=== PATIENT | male | born 1990 | race Hispanic/Latino ===

== ENCOUNTER 2017-05-22 19:13 | Inpatient (IN) | payer OTHER ==
[~2017-05-22] VITALS: Ht 180.3 cm; Wt 73.1 kg
[2017-05-22 19:24] VITALS: BP 149/76; PULSE 66; RESP 20; O2SAT 98
[2017-05-22 20:51] LABS: BASOPHILS % (AUTO) 0.1 % (0-3); EOSINOPHILS % (AUTO) 0.4 % (0-5); MONOCYTES % (AUTO) 6.3 % (4-12); Mean Corpuscular Volume 83.7 fL (81-100); NEUTROPHILS % (AUTO) 83.6 % (40-74); Platelet Count 231 bil/L (150-400)
--- NOTE | 2017-05-22 21:18 | ED.REPORT ---
HPI-Abd Pain M Under 40 Date of Service May 22, 2017 ED Provider: Betito Bright DO A 26 year old male with no pertinent medical history presents to the ED complaining of abdominal pain. This pain began last night and has been gradually worsening since and has been accompanied by nausea. The pain worsened significantly when the pt attempted to orange picker a two year old child today. Nursing Notes Stated Complaint: ABDOMINAL PAIN Chief Complaint: Male Abdominal Pain Nursing Notes Reviewed: Yes Allergies: Coded Allergies: No Known Allergies (Unverified , 05/22/17) No Active Prescriptions or Reported Meds General Time Seen by MD: 21:18 Chief Complaint Abdominal pain Hx Obtained From: Patient Arrived By: Walk-in Sudden in Onset?: No Onset Occurred: 1 day ago Symptom Duration: Since onset Recent Healthcare: No recent doctor visit, No recent hospitalization Similar Sx Previous: No Past Medical History Past Medical History none reported Past Surgical History none reported Smoking History Unknown if Ever Smoker Social History Alcohol Use: "Social" Other Social History: Good social support Ambulatory Status Independent Review of Systems Respiratory: Denies: Non-productive cough, Shortness of breath Cardiovascular: Denies: Chest pain GI: Reports: Abdominal pain, Nausea Musculoskeletal: Denies: Back pain, Neck pain Complete sys rev & neg: except as marked. Physical Exam Initial Vital Signs Vital Signs (First) Date Time Temp Pulse Resp B/P Pulse Ox O2 Delivery O2 Flow Rate FiO2 05/22/17 19:24 36.8 66 20 149/76 98 Room Air Initial VS: Reviewed General/Constitutional: Awake, Alert Respiratory / Chest: Atraumatic, Breath sounds NL, Breath sounds = bilat, No respiratory distress Cardiovascular: Heart rate NL, Regular rhythm, Heart sounds NL Abdomen: Atraumatic, Soft moderate RLQ tenderness Back: Atraumatic, Full range of motion Head / Eyes: Atraumatic, Normocephalic, PERRL, EOMI ENT: Atraumatic, Airway patent, Mucous membranes moist Neurologic: Oriented X3, Speech NL, No motor deficits, No sensory deficits Neck: Atraumatic, Supple, Full range of motion Upper Extremity / MS: Atraumatic, Full range of motion Lower Extremity / Pelvis / MS: Atraumatic, Full range of motion Skin: Atraumatic, Color NL, No rash, Warm, Dry Psychiatric: Affect NL, Mood NL Interpretation & Diagnostics Lab Results Interpretation Result Diagram: 05/22/17202505/22/172025 Test 05/22/17 20:26 05/22/17 21:15 05/22/17 23:20 White Blood Count 17.0th/mm3 (3.8-10.1) Red Blood Count 4.97mil/mm3 (4.40-5.80) Hemoglobin 14.4g/dL (13.8-17.2) Hematocrit 41.6% (41.0-50.0) Mean Corpuscular Volume 83.7fL (81-100) Mean Corpuscular Hemoglobin 29.0pg (27.0-35.0) Mean Corpuscular Hemoglobin Concent 34.6% (32.0-37.0) Red Cell Distribution Width 13.3% (12.3-15.4) Platelet Count 231bil/L (150-400) Neutrophils (%) (Auto) 83.6% (40-74) Lymphocytes (%) (Auto) 9.4% (14-46) Monocytes (%) (Auto) 6.3% (4-12) Eosinophils (%) (Auto) 0.4% (0-5) Basophils (%) (Auto) 0.1% (0-3) Sodium Level 138mEq/L (134-144) Potassium Level 4.0mEq/L (3.5-5.2) Chloride Level 98mEq/L (97-108) Carbon Dioxide Level 23mmol/L (18-29) Blood Urea Nitrogen 9mg/dL (6-20) Creatinine 0.71mg/dL (0.76-1.27) Estimat Glomerular Filtration Rate 141mL/min (>59) Glucose Level 138mg/dL (60-99) Calcium Level 9.5mg/dL (8.5-10.1) Magnesium Level 1.7mg/dL (1.6-2.6) Total Bilirubin 1.1mg/dL (0.0-1.2) Aspartate Amino Transf (AST/SGOT) 25U/L (0-50) Alanine Aminotransferase (ALT/SGPT) 29U/L (0-44) Alkaline Phosphatase 79U/L (25-150) Total Protein 7.8g/dL (6.4-8.4) Albumin 4.1g/dL (3.4-5.0) Lipase 15U/L (13-60) Hold Turcios Top Tube Received (Received) Urine Color Yellow (YELLOW) Urine Appearance Clear (CLEAR,HAZY) Urine pH 5.5 (5.0-8.0) Urine Specific [place] 1.020 (1.003-1.035) Urine Protein Negativemg/dL (NEG,TRACE) Urine Glucose (UA) Negativemg/dL (NEGATIVE) Urine Ketones >80mg/dL (NEGATIVE) Urine Occult Blood Negative (NEGATIVE) Urine Nitrite Negative (NEGATIVE) Urine Bilirubin Negative (NEGATIVE) Urine Urobilinogen Normalmg/dL (NORMAL) Urine Leukocyte Esterase Negative (NEGATIVE) Urine RBC 0-2/hpf (0-2) Urine WBC 0-5/hpf (0-5) Urine Epithelial Cells Occasional/hpf (NONE-MOD) Urine Crystals None seen (NONE SEEN) Urine Bacteria Few/hpf (NONE-FEW) Urine Hyaline Casts None/lpf (NONE) Urine Granular Casts None seen (NONE SEEN) Urine Waxy Casts None seen (NONE SEEN) Urine Red Blood Cell Casts None seen (NONE SEEN) Urine White Blood Cell Casts None seen (NONE SEEN) Urine Mucus Present (None Seen) Urine Trichomonas None seen (NONE SEEN) Urine Yeast None (NONE SEEN) Urinalysis Comment None Urine Culture Reflexed Not indicated Pulse Oximetry Interpretation Pulse Oximetry Interpretation: 98% on room air Pulse Oximetry: Pulse Ox normal CT Abd / Pelvis Interpretation CONCLUSION: CT findings of acute appendicitis. Poorly defined appendiceal wall at the tip, where an appendicolith is noted, worrisome for perforation, though no extraluminal air or discrete abscess is seen. Moderate fluid in the dependent portion of the pelvis, more dense than typical ascites, and worrisome for pus. Interpretation / Wet Read by: Interpret - Radiologist Re-Eval/Medical Decision Source of Hx: Old records Re-Evaluation/Progress : Time of Eval: 23:20 Patient Status: Condition improved Re-Evaluation/Progress Note: Pt rechecked, whose pain has improved. The diagnosis and plan for admission are discussed. The pt understands and agrees with the plan. All questions are addressed at this time. Consultation : Referral / Consult Name: Ricki Hugo MD Call Returned at: 23:24 Atomizer Assembler: Agrees with eval, Agrees with plan, Accepts admit Note: Spoke with Dr. Hugo, surgeon, regarding pt's case. Dr. Hugo agrees with the evaluation and agrees to admit the pt. Counseled Regarding: Diagnosis, Lab results, Need for admission Patient Discharge & Departure Primary Impression: Acute appendicitis Acute appendicitis type: unspecified acute appendicitis type Qualified Code: K35.80 - Unspecified acute appendicitis Disposition: ADMITTED TO HOSPITAL Discharge Condition All VS Reviewed: Yes Condition: Stable Additional Instructions: Portions of this note were transcribed by Lyndsay Collier. Dr. Kaila Mixon personally performed the history, physical exam and medical decision-making; I reviewed and confirmed the accuracy of the information in the transcribed note. Signed by: Cheyenne Matthew, 05/22/2017 and 0486. Referrals: [facility] [place] Attestation Portions of this note were transcribed by Lyndsay Collier. Dr. Kaila Mixon personally performed the history, physical exam and medical decision-making; I reviewed and confirmed the accuracy of the information in the transcribed note. Signed by: Cheyenne Matthew, 05/22/2017 and [id number]. copies to: [facility] Betito Bright DO May 22, 2017 21:18 LYNDSAY COLLIER May 22, 2017 22:13
[2017-05-22] MEDS ORDERED: HYDROmorphone 0.5 mg/0.5 mL iSecure Syringe IVPUSH ONE (21:20)
[2017-05-22 21:22] LABS: Magnesium 1.7 mg/dL (1.6-2.6)
[2017-05-22] MEDS ORDERED: Iohexol 300 mg/mL 30 mL Inj PO ONE (21:40)
[2017-05-22 21:44] VITALS: BP 148/75; PULSE 87; RESP 20; O2SAT 96
[2017-05-22] MEDS ORDERED: Piperacillin-Tazo 3.375 Gm Inj 3.375 GM in Dextrose 5% Minibag Plus 50 ML IV ONE (23:20)
[2017-05-22 23:43] LABS: APPEARANCE,URINE CLEAR (CLEAR,HAZY); COLOR,URINE YELLOW (YELLOW); OCCULT BLOOD,URINE NEGATIVE (NEGATIVE); PH,URINE 5.5 (5.0-8.0); UROBILINOGEN,URINE NORMAL (NORMAL)
[2017-05-22 23:49] VITALS: BP 132/71; PULSE 90; RESP 16; O2SAT 99
[2017-05-23] VITALS (12 sets, daily range): BP systolic 112–128; BP diastolic 51–75; PULSE 71–103; RESP 16–20; O2SAT 96–99
[2017-05-23] MEDS ORDERED: Phenylephrine 10,000 mCg/mL Inj IVPUSH PRN
[2017-05-23] MEDS ORDERED: fentaNYL-PF 50 mCg/mL 2 mL Inj IVPUSH PRN
[2017-05-23] MEDS ORDERED: MetoCLOpramide 5 mg/mL 2 mL Inj IVPUSH PRN
[2017-05-23] MEDS ORDERED: HYDROmorphone 1 mg/mL Inj IVPUSH PRN
[2017-05-23] MEDS ORDERED: EPHEDrine Sulfate 50 mg/mL Inj IVPUSH PRN
[2017-05-23] MEDS ORDERED: Dexamethasone 4 mg/mL Inj IVPUSH PRN
[2017-05-23] MEDS ORDERED: Lactated Ringer's 1,000 ML IV SCH
[2017-05-23] MEDS ORDERED: Labetalol 5 mg/mL 4 mL Inj IV PRN
[2017-05-23] MEDS ORDERED: Lactated Ringer's 500 ML IV PRN
[2017-05-23] MEDS ORDERED: hydrALAZINE 20 mg/mL Inj IVPUSH PRN
--- NOTE | 2017-05-23 00:17 | HP PRE OP ---
[address] [address] PREOPERATIVE HISTORY AND PHYSICAL PATIENT: PAUL GUADALUPE : 1990 MR#: [id number] ADMIT: 05/23/2017 JOB ID: [id number] CHIEF COMPLAINT AND IDENTIFICATION: A 26-year-old man with probable appendicitis. HISTORY OF PRESENT ILLNESS: He reports onset of abdominal pain last night with gradually increased pain and associated nausea. CT scan has been obtained consistent with appendicitis. The patient has no previous history of chronic GI complaints or previous abdominal surgery. PAST MEDICAL HISTORY: Unremarkable. MEDICATIONS: None. ALLERGIES: None. SOCIAL HISTORY: , seen with his , negative daily alcohol, negative tobacco. 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 He does have sick leave. FAMILY HISTORY: Noncontributory. REVIEW OF SYSTEMS: Negative. PHYSICAL EXAMINATION: Slender man in no acute distress. BMI is 21.7. Vital signs are within normal limits other than a mildly elevated temperature of 38.2. Room air saturation is 96%. His neck is supple. HEENT: Sclerae clear. His neck is supple. Lungs are clear. Heart sounds are regular. He has significant right lower quadrant tenderness to palpation and percussion. LABORATORIES: Show a white count of 17, hematocrit is 41.6. Chemistries are within normal limits. His glucose is 138, lipase is 15. IMAGING: He has had a CT scan. I have reviewed the political science faculty member report, as well as reviewed the images, and I concur that this is consistent with appendicitis. He appears to have an appendicolith. IMPRESSION AND PLAN: I have recommended a laparoscopic appendectomy. He agrees to proceed. The operating room crew will move things ahead.
[2017-05-23] MEDS ORDERED: Ondansetron 2 mg/mL 2 mL Inj ONE (00:23)
[2017-05-23] MEDS ORDERED: Ketamine 10 mg/mL 20 mL Inj ONE (00:23)
[2017-05-23] MEDS ORDERED: Lactated Ringer's 1,000 ML IV ONE (00:23)
[2017-05-23] MEDS ORDERED: fentaNYL-PF 50 mCg/mL 2 mL Inj ONE (00:23)
[2017-05-23] MEDS ORDERED: Propofol 10,000 mCg/mL 20 mL Inj ONE (00:23)
[2017-05-23] MEDS ORDERED: Succinylcholine Chloride 20 mg/mL 5 mL Inj ONE (00:23)
[2017-05-23] MEDS ORDERED: Dexamethasone 4 mg/mL Inj ONE (00:23)
--- NOTE | 2017-05-23 00:23 | PCM.HPANE ---
Patient Data Date of Service: May 23, 2017 Surgeon Admitting Provider: Attending Provider:Ricki Hugo MD Primary Care Physician:Alycia Other Provider:Kizzy Talamantes Anesthesia Reason for Visit Abdominal Pain Ht/WT & BMI Height (Feet): 5 Height (Inches): 11 Weight (Kilograms): 70.45 Body Mass Index Allergies Coded Allergies: No Known Allergies (Unverified , 05/22/17) Past Anesthesia History Anesthesia History: Denies:: Abnormal Airway, Anesthesia Reactions, Difficult Intubation, Fam Anesthesia Reaction, Fam Malignant Hypertherm, Malignant Hyperthermia Diabetes History Hx Diabetes?: No Medications No Active Prescriptions or Reported Meds History History of ENT Problems?: No HEENT History: Denies:: Abnormal Airway Cataracts Difficult Intubation Dysphagia Glaucoma Hearing Problem Sinus Problem TMJ Denture Type: None Teeth Condition: Within Normal Limits Hx of Heart Problems?: No Cardiovascular History: Denies:: Congestive Heart Failure Hypertension Hx of Respiratory Problem?: No Respiratory History: Positive for:: Oxygen Administration Denies:: Asthma COPD Cough Dyspnea Pneumonia Use of C-PAP Machine Use of Inhalers / NEBS Hx Neurologic Problems?: No Hx of GI Problems?: No Hx of Problems?: No Hx Musculoskeletal Problems?: No Hx Surgeries?: No Hx Diabetes: No Hx Alcohol Use: Yes (sometimes)Hx Substance Use: No Smoking Status: Unknown if Ever Smoker Stop/Bang S-Snoring: Do You Snore Loudly: No T-Tired: feel tired, fatigued: No O-Obsered: Observed not breath: No P-Blood Pressure: treated: No B- Body Mass Index > 35 kg/m2: No A- Age over 50: No N- Neck Large Circumference: No G- Gender Male: Yes NINA Risk Assessment: Low Risk, <3 Yes Risk Assessment Category Category 1A: Patient has history of documented sleep apnea, and HAS NOT received any narcotic, sedative or anesthesia administration during this stay. Category 1B: Patient has history of documented sleep apnea, and HAS received any narcotic , sedative or anesthesia administration during this stay Category 2: Patient has SUSPECTED Obstructive Sleep Apnea, and HAS received any narcotic , sedative or anesthesia administration during this stay. Category 3: Patient has SUSPECTED Obstructive Sleep Apnea and HAS NOT received narcotic, sedative or anesthesia administration during this stay. Category 4: Outpatient in Procedural Areas with known sleep apnea or who screen positive for High Risk via the STOP/BANG questionnaire. Exam Exam Vital Signs Vital Signs Date Time Temp Pulse Resp B/P Pulse Ox O2 Delivery O2 Flow Rate FiO2 05/23/17 00:15 37.4 91 16 126/66 99 Room Air 05/22/17 23:49 37.3 90 16 132/71 99 Room Air 05/22/17 21:44 38.2 87 20 148/75 96 Room Air 05/22/17 19:24 36.8 66 20 149/76 98 Room Air General Appearance: Alert, Oriented X3, Cooperative, No Acute Distress HEENT/AIRWAY: MP 1 Lungs: Clear to Auscultation, Normal Air Movement Heart: Exam Unremarkable, Regular Rate/Rhythm, No Murmurs/Rubs/Gallops Meds/Labs/Diagnostics Admission Meds Current Medications Hydromorphone HCl (Dilaudid Inj) 0.5 mg ONCE ONCE IVPUSH Last administered on 05/22/17 21:34; Start 05/22/17 at 21:20; Stop 05/22/17 at 21:21; Status DC Ketorolac Tromethamine (Toradol Inj) 30 mg ONCE ONCE IVPUSH Last administered on 05/22/17 21:36; Start 05/22/17 at 21:20; Stop 05/22/17 at 21:21; Status DC Iohexol 9000 mg 9,000 mg ONCE ONCE PO Last administered on 05/22/17 22:13; Start 05/22/17 at 21:40; Stop 05/22/17 at 21:41; Status DC Piperacillin Sod/ Tazobactam Sod/ Dextrose/Water (Zosyn 3.375 Gm Inj/D5W Minibag Plus) 50 ml @ 100 mls/hr ONCE ONCE IV Last administered on 05/22/17 23:35; Start 05/22/17 at 23:20; Stop 05/22/17 at 23:49; Status DC Labs Test 05/22/17 20:26 05/22/17 21:15 05/22/17 23:20 White Blood Count 17.0th/mm3 (3.8-10.1) Red Blood Count 4.97mil/mm3 (4.40-5.80) Hemoglobin 14.4g/dL (13.8-17.2) Hematocrit 41.6% (41.0-50.0) Mean Corpuscular Volume 83.7fL (81-100) Mean Corpuscular Hemoglobin 29.0pg (27.0-35.0) Mean Corpuscular Hemoglobin Concent 34.6% (32.0-37.0) Red Cell Distribution Width 13.3% (12.3-15.4) Platelet Count 231bil/L (150-400) Neutrophils (%) (Auto) 83.6% (40-74) Lymphocytes (%) (Auto) 9.4% (14-46) Monocytes (%) (Auto) 6.3% (4-12) Eosinophils (%) (Auto) 0.4% (0-5) Basophils (%) (Auto) 0.1% (0-3) Sodium Level 138mEq/L (134-144) Potassium Level 4.0mEq/L (3.5-5.2) Chloride Level 98mEq/L (97-108) Carbon Dioxide Level 23mmol/L (18-29) Blood Urea Nitrogen 9mg/dL (6-20) Creatinine 0.71mg/dL (0.76-1.27) Estimat Glomerular Filtration Rate 141mL/min (>59) Glucose Level 138mg/dL (60-99) Calcium Level 9.5mg/dL (8.5-10.1) Magnesium Level 1.7mg/dL (1.6-2.6) Total Bilirubin 1.1mg/dL (0.0-1.2) Aspartate Amino Transf (AST/SGOT) 25U/L (0-50) Alanine Aminotransferase (ALT/SGPT) 29U/L (0-44) Alkaline Phosphatase 79U/L (25-150) Total Protein 7.8g/dL (6.4-8.4) Albumin 4.1g/dL (3.4-5.0) Lipase 15U/L (13-60) Hold Turcios Top Tube Received (Received) Urine Color Yellow (YELLOW) Urine Appearance Clear (CLEAR,HAZY) Urine pH 5.5 (5.0-8.0) Urine Specific [place] 1.020 (1.003-1.035) Urine Protein Negativemg/dL (NEG,TRACE) Urine Glucose (UA) Negativemg/dL (NEGATIVE) Urine Ketones >80mg/dL (NEGATIVE) Urine Occult Blood Negative (NEGATIVE) Urine Nitrite Negative (NEGATIVE) Urine Bilirubin Negative (NEGATIVE) Urine Urobilinogen Normalmg/dL (NORMAL) Urine Leukocyte Esterase Negative (NEGATIVE) Urine RBC 0-2/hpf (0-2) Urine WBC 0-5/hpf (0-5) Urine Epithelial Cells Occasional/hpf (NONE-MOD) Urine Crystals None seen (NONE SEEN) Urine Bacteria Few/hpf (NONE-FEW) Urine Hyaline Casts None/lpf (NONE) Urine Granular Casts None seen (NONE SEEN) Urine Waxy Casts None seen (NONE SEEN) Urine Red Blood Cell Casts None seen (NONE SEEN) Urine White Blood Cell Casts None seen (NONE SEEN) Urine Mucus Present (None Seen) Urine Trichomonas None seen (NONE SEEN) Urine Yeast None (NONE SEEN) Urinalysis Comment None Urine Culture Reflexed Not indicated Plan Impression Patient chart reviewed, patient interviewed and anesthestic plan with risks, benefits, and alternatives discussed, and informed consent obtained. Jitendra Hunter MD May 23, 2017 00:23
[2017-05-23] MEDS ORDERED: Bupivacaine-MPF 0.5% W/EPI 30 mL Inj INFILTRATE ONE (00:42)
[2017-05-23] MEDS ORDERED: Ondansetron 2 mg/mL 2 mL Inj IVPUSH PRN ×2 (01:30)
[2017-05-23] MEDS ORDERED: diphenhydrAMINE 25 mg Capsule PO PRN (01:30)
[2017-05-23] MEDS ORDERED: HYDROmorphone 0.5 mg/0.5 mL iSecure Syringe IV PRN (01:30)
--- NOTE | 2017-05-23 01:50 | OP ---
[address] [address] OPERATIVE REPORT PATIENT: PAUL GUADALUPE : 1990 MR#: [id number] ADMIT: 05/23/2017 JOB ID: [id number] DATE OF SURGERY: 05/22/2017 PREOPERATIVE DIAGNOSIS(ES): Appendicitis. POSTOPERATIVE DIAGNOSIS(ES): Perforated appendicitis. PROCEDURE: Laparoscopic appendectomy for perforated appendicitis. SURGEON: Ricki Hugo MD INSURANCE COLLECTOR: None. INDICATION: A 26-year-old man with signs and symptoms consistent with appendicitis. FINDINGS: Acute perforated appendicitis with abscess. DESCRIPTION OF PROCEDURE: The patient was brought to the operating room. General anesthetic was administered. SCOAP protocol was followed. Surgical time-out was performed. He received perioperative antibiotics within one hour of the incision. After surgical time-out, we obtained access with a Veress needle. Optical trocar was placed by the umbilicus, followed by two additional ports under laparoscopic vision. There was free fluid down in the pelvis. Greater omentum was stuck over and some small bowel that was also stuck over the appendix. As we pulled this back, we entered an abscess cavity with a spurt of pus out of the anterior abdominal wall. This was suctioned out. We now proceeded to mobilize the appendix and the cecum, and identified a fairly short stubby appendix. This was taken off at the base, with one initial firing just below the appendicolith and then further dissection revealing a slightly longer appendiceal stump that was removed. Specimens were sent to pathology. Checked that the staple line was intact. Hemostasis was good. We now irrigated out the abdomen and pelvis with 2 L of saline, suctioned out all of our irrigant, placed a drain down in the pelvis, with the proximal end coming up by the appendiceal abscess. CO2 pneumoperitoneum was released and we closed the wounds with absorbable suture, including 0 Vicryl at the fascial level and 5-0 Monocryl for the skin. The drain was secured with a nylon suture. The patient tolerated the procedure well.
[2017-05-23] MEDS ORDERED: 0.9% Sodium Chloride 250 ML ONE (02:42)
[2017-05-23] MEDS: Acetaminophen IV 1,000 MG in IV Premix 1 EACH IV PRN ×2 (02:50→19:50)
--- NOTE | 2017-05-23 03:01 | NUR ---
Admit/Post-op pt arrived to [facility] room 1031 from PACU at 0215. he was able to slide himself from the gurney to his hospital bed. he is drowsy but easily awakens to voice and answers all questions appropriately. he complained of mild pain in his abdomen and has been given IV tylenol, will reass for effectiveness. VSS and afebrile. pule oximetry is on. sp02 is mid 90's on RA. dressings are intact. the two lap sites have small amount of serous sanguineous drainage. pt is tired and does not want any clear liquids at this time. admit completed with input from pt and his . he denies taking any home medications. pt has been oriented to room, call light, and bed controls. care continues.
[2017-05-23] MEDS: D5 0.45% NaCl + KCl 20 mEq/L 1,000 ML IV SCH ×2 (03:48→11:26)
[2017-05-23 07:39] LABS: BASOPHILS % (AUTO) 0 % (0-3); EOSINOPHILS % (AUTO) 0 % (0-5); MONOCYTES % (AUTO) 3.5 % (4-12); Mean Corpuscular Hemoglobin 28.9 pg (27.0-35.0); Mean Corpuscular Volume 83.5 fL (81-100); NEUTROPHILS % (AUTO) 90.5 % (40-74); Platelet Count 217 bil/L (150-400)
--- NOTE | 2017-05-23 07:52 | DRSVH ---
PROCEDURE: CT ABDOMEN AND PELVIS WITH CONTRAST ([id number]) INDICATIONS: rightlower quadrant pain TECHNIQUE: After the administration of oral and intravenous contrast, 5 mm thick sections acquired from the diap hragms to the symphysis. 5 mm thick coronal and sagittal reformats were performed. For radiation do se reduction, the following was used: automated exposure control, adjustment of mA and/or kV accordi ng to patient size. COMPARISON: None. FINDINGS: Image quality: Excellent. ABDOMEN: Lung bases: Lung bases are clear. Heart size is normal. Solid organs: Liver and spleen are normal in size and enhancement. Gallbladder is present. Biliary system is non-dilated. Pancreas enhances normally. No adrenal nodules. Kidneys are normal in size and enhancement, without hydronephrosis. Peritoneum and bowel: Enlarged thick-walled enhancing appendix containing an appendicolith. Reactive inflammation in the very closely associated terminal ileum. No definite abscess or drainable fluid co llection. No obstruction. Nodes and vessels: No retroperitoneal or mesenteric adenopathy. Aorta and inferior vena cava are no rmal in caliber. Miscellaneous: No ventral hernias. PELVIS: Genitourinary: Bladder wall thickness is normal. Miscellaneous: No inguinal hernias or adenopathy. Free fluid in the pelvis. No rim enhancement to s uggest abscess. Bones: No suspicious bony lesions. No vertebral body compression fractures. IMPRESSION: 1. Advanced acute appendicitis with appendicolith. No drainable fluid collections. No obstruction alt khalida the closely associated terminal ileum is significantly inflamed. 2. Pelvic fluid may be inflammatory or infectious. No thick or enhancing wall to suggest a drainable abscess. 3. There are no discrepancies with the preliminary report. Dictated by: Santiago Nichole M.D. on 05/23/2017 at 7:44 Approved by: Santiago Nichole M.D. on 05/23/2017 at 7:51
[2017-05-23] MEDS: Piperacillin-Tazo 3.375 Gm Inj 3.375 GM in Dextrose 5% Minibag Plus 50 ML IV SCH ×2 (09:05→17:55)
--- NOTE | 2017-05-23 13:34 | PCM.PNSURG ---
Subjective Date of Service: May 23, 2017 Date of Service: May 23, 2017 Visit Information: Reason for Visit Acute Appendicitis Surgery/Surgery Date May 23, 2017 Post-Op Day # Date of Admission: May 23, 2017 at 00:22 Hospital Day #1 Subjective: Seen patient at bedside. Doing well with minimal c/o of pain with transfers and coughing. Tolerates food brought in from outside without n/v. Passing flatus; no bm. Denies f/c. Voiding well. Postop General: No Shortness of Breath, No Chest Pain Gastrointestinal: Tolerating Oral Feedings, No N/V, Passing Flatus Pain Management: PO, IV Push, Good Pain Control Postop Activity: Ambulating Independently Objective Vital Sign- Last 8 Hours Date Time Temp Pulse Resp B/P Pulse Ox O2 Delivery O2 Flow Rate FiO2 05/23/17 12:49 72 16 98 Room Air 05/23/17 11:42 36.5 71 17 128/75 99 Room Air 05/23/17 06:34 36.9 80 20 126/73 97 Room Air Intake and Output- Last 8 Hour 05/23/17 Cumulative From/Thru 07:00 05/22/17 19:24 - 05/23/17 06:34 Intake Total 400 ml 400 ml Output Total 50 ml 50 ml Balance 350 ml 350 ml Intake Oral 0 ml 0 ml IV Total 400 ml 400 ml Output Urine Total 0 ml 0 ml Drainage Total 50 ml 50 ml # Voids 0 0 # Bowel Movements 0 0 General: Alert, Cooperative, No Acute Distress Lungs: Clear to Auscultation Abdomen: Firm, Appropriately tender, Non-distended, Normoactive bowel tones SURGICAL WOUND : Wound General Appearence: Steri Strips, Wound under dressing Wound Drainage Type: WU Drain #1 (serosanguinous--> 20 mL) Extremities: Warm Result Diagram: 05/23/17 0730 05/22/172025 Lab & Micro Results: [id number] leukocytes. Assessment & Plan Impression satisfactory postop course s/p lap appy for perforated appendicitis Pt doing well in spite of high WBC, afebrile and tolerating PO diet with adequate pain control. Problems: Plan Ck am CBC decrease ivf to 60/h Soft diet Leave WU for now continue zosyn ambulate IS hourly VTE Prophylaxis: Heath Stroud PA-C May 23, 2017 13:34
--- NOTE | 2017-05-23 17:19 | NUR ---
Activity/Diet Patient able to tolerate a moderate amount of PO intake this shift. Patient's brought in a salad and the patient was able to tolerate that well. Also had an increase in fluid intake this shift as well. Denies nausea and pain has been tolerable. Patient was out of bed to the bathroom for a bowel movement this afternoon and was SBA to assist with his IV pole. Patient stated he felt "weak and odd.". Did encourage ambulation in the hallway when he feels up to it.
[2017-05-24] MEDS: Piperacillin-Tazo 3.375 Gm Inj 3.375 GM in Dextrose 5% Minibag Plus 50 ML IV SCH ×3 (01:35→17:18)
[2017-05-24] MEDS: D5 0.45% NaCl + KCl 20 mEq/L 1,000 ML IV SCH ×2 (02:44→19:24)
[2017-05-24 05:10] VITALS: BP 112/64; PULSE 86; RESP 16; O2SAT 99
--- NOTE | 2017-05-24 05:57 | NUR ---
Patient education Patient requested information on varies parts of his care that I was able to answer. Tolerated meals over night well not noted c/o Nausea. Ambulating to restroom with minimal assistance. Pain between 1-4/10 taking combination of Tylenol and Motrin for management. Will continue to manage pain and intentional rounding.
[2017-05-24 06:37] LABS: BASOPHILS % (AUTO) 0.1 % (0-3); EOSINOPHILS % (AUTO) 0.1 % (0-5); MONOCYTES % (AUTO) 6.2 % (4-12); Mean Corpuscular Hemoglobin 28.6 pg (27.0-35.0); Mean Corpuscular Volume 83.7 fL (81-100); NEUTROPHILS % (AUTO) 85.6 % (40-74); Platelet Count 216 bil/L (150-400)
--- NOTE | 2017-05-24 07:40 | PCM.PNSURG ---
Subjective Date of Service: May 24, 2017 Date of Service: May 24, 2017 Visit Information: Reason for Visit Acute Appendicitis Surgery/Surgery Date Post-Op Day # 1 s/p lap appy for perf Date of Admission: May 23, 2017 at 00:22 Hospital Day # Subjective: Pt feels subjective better today. No n/v with current oral intake. BM x 2. Ambulating better. Denies f/c/cp/sob. IS continues hourly. Postop General: No Complaints, No Shortness of Breath, No Chest Pain Gastrointestinal: Good Appetite, Tolerating Oral Feedings, No N/V, No Belching , Passing Flatus, Passing Stool Objective Objective Pleasant oriented comfortable appearing male in NAD. Afebrile. Vital Sign- Last 8 Hours Date Time Temp Pulse Resp B/P Pulse Ox O2 Delivery O2 Flow Rate FiO2 05/24/17 05:10 36.6 86 16 112/64 99 Room Air Intake and Output- Last 8 Hour 05/24/17 Cumulative From/Thru 07:00 05/22/17 19:24 - 05/24/17 06:30 Intake Total 1422 ml 3809 ml Output Total 960 ml 2880 ml Balance 462 ml 929 ml Intake Oral 1150 ml 2350 ml IV Total 272 ml 1459 ml Output Urine Total 950 ml 2750 ml Drainage Total 10 ml 130 ml # Voids 0 # Bowel Movements 0 0 General: Alert, Cooperative, No Acute Distress Lungs: Clear to Auscultation Heart: Regular Rate/Rhythm Abdomen: Soft, Appropriately tender, Non-distended, Normoactive bowel tones SURGICAL WOUND : Wound General Appearence: Steri Strips, Intact, Well Approximated, No Erythema, No Discharge, No Inflammatory Changes Dressing & Drainage Status: Intact, Minimal, No Purulent Drainage, No Odor Wound Drainage Type: WU Drain #1 (minimal serosanguinous.) Result Diagram: 05/24/1762205/22/172025 Assessment & Plan Impression satisfactory post op course s/p lap appy for perf. Tolerating diet and ambulating. WBC mild improved but afebrile. Abdominal exam improving with min. WU output. Problems: Plan Increase fluid intake Increase ambulation Lock IV Reg diet labs am VTE Prophylaxis: Heath Stroud PA-C May 24, 2017 07:40
[2017-05-24 15:21] VITALS: BP 124/65; PULSE 90; RESP 24; O2SAT 97
--- NOTE | 2017-05-24 18:22 | NUR ---
Activity/Pain Patient up independently in room to bathroom and walks around the bed. Did have an increase in pain this AM with ambulation and having a bowel movement, but reports less pain this afternoon. Patient tolerating being up out of bed well and encouraged to try a lap in the hallway.
[2017-05-24 20:03] VITALS: BP 117/59; PULSE 97; RESP 18; O2SAT 98
[2017-05-25] VITALS: BP 119/74; PULSE 98; RESP 20; O2SAT 99
[2017-05-25] MEDS ORDERED: 0.9% Sodium Chloride 250 ML ONE (00:32)
[2017-05-25] MEDS: Piperacillin-Tazo 3.375 Gm Inj 3.375 GM in Dextrose 5% Minibag Plus 50 ML IV SCH ×3 (00:44→16:50)
--- NOTE | 2017-05-25 01:24 | NUR ---
LOW GRADE FEVER: Pt. has been having low grade fever through the evening tonight. States "I feel weak and sleepy". Encouraged to ambulate on the hallway, to use his IS, cough and deep breath to prevent pneumonia. All other VSS. Pt. did as advised, he is drinking lots of fluids, tolerating po intake well. Denies pain, states "it only hurts when I pee", voiding per urinal. RA sats at 98-99%. Gave 200 mg of Motrin. Pt's spending the night in tonight with 3 months old baby. A & O, pleasant and cooperative with care.
[2017-05-25 06:23] LABS: BASOPHILS % (AUTO) 0.1 % (0-3); EOSINOPHILS % (AUTO) 0.2 % (0-5); MONOCYTES % (AUTO) 7.6 % (4-12); Mean Corpuscular Hemoglobin 28.9 pg (27.0-35.0); Mean Corpuscular Volume 83.9 fL (81-100); NEUTROPHILS % (AUTO) 84.2 % (40-74); Platelet Count 245 bil/L (150-400)
[2017-05-25 10:59] VITALS: BP 118/68; PULSE 100; RESP 18; O2SAT 100
[2017-05-25] MEDS: D5 0.45% NaCl + KCl 20 mEq/L 1,000 ML IV SCH (12:04)
--- NOTE | 2017-05-25 12:17 | PCM.PNSURG ---
Subjective Date of Service: May 25, 2017 Date of Service: May 25, 2017 Visit Information: Reason for Visit Acute Appendicitis Surgery/Surgery Date Post-Op Day # 2 s/p lap appy for perforated appendix Date of Admission: May 23, 2017 at 00:22 Hospital Day # Subjective: Pt seen at bedside. Feels abdominal pain is improved. Notes no fevers. Tolerating reg diet without nausea. BM x 2 (small). Ambulating. No CP/SOB. Postop General: No Complaints Gastrointestinal: Tolerating Oral Feedings, No N/V, Passing Stool Pain Management: PO Objective Objective Pleasant young man in no apparent distress. afebrile. VSS. Vital Sign- Last 8 Hours Date Time Temp Pulse Resp B/P Pulse Ox O2 Delivery O2 Flow Rate FiO2 05/25/17 10:59 36.8 100 18 118/68 100 Room Air Intake and Output- Last 8 Hour 05/25/17 Cumulative From/Thru 07:00 05/22/17 19:24 - 05/25/17 06:09 Intake Total 485 ml 7357 ml Output Total 460 ml 4080 ml Balance 25 ml 3277 ml Intake Oral 300 ml 5648 ml IV Total 185 ml 1709 ml Output Urine Total 400 ml 3840 ml Drainage Total 60 ml 240 ml # Voids 0 # Bowel Movements 0 1 Neck: Supple Lungs: Clear to Auscultation Heart: Regular Rate/Rhythm Abdomen: Soft, Appropriately tender, Normoactive bowel tones SURGICAL WOUND : Wound General Appearence: Steri Strips Wound Drainage Type: ENDY Drain #1 (serosanguinous) Result Diagram: 05/25/1718 05/22/172025 Assessment & Plan Impression satisfactory post op course s/p lap appy for perforated appendicitis spike of fever last noc with cont'd elevated WBC Although feels better and tolerating diet with good pain control and scant endy output; will elect to have patient remain another night. will check am labs and consider d/c home tomorrow on abx if WBC improve and decreasing febrile spikes. If WBC stays high and cont'd fevers will likely CT abdomen to eval for poss abscess. Patient satisfied with plan. Problems: Plan Leave drain Continue current diet AM labs Ambulate VTE Prophylaxis: Heath Stroud PA-C May 25, 2017 12:17
--- NOTE | 2017-05-25 14:50 | NUR ---
Social Work- Screening/ Readiness for Discharge Data: EMR reviewed. Pt is a 26 year old male admitted 05/23/17 for acute appendicitis per H&P. Pt's insurance is [facility]. Pt has no listed PCP. Pt's NOK is Mainor Hamm, , . Per chart review, pt resides in [place] with his where he is independent at baseline. Pt has been ambulating after surgery and tolerating a general diet. Pt's WBC has been elevated and pt will stay another night. Likely discharge tomorrow. Pt anticipated to discharge tomorrow with to transport POV. No discharge needs identified at this time. SW will continue to follow if needs arise. Assessment: Pt who is independent at baseline. Plan: Pt's WBC has been elevated and pt will stay another night. Likely discharge tomorrow. Pt anticipated to discharge tomorrow with to transport POV. No discharge needs identified at this time. SW will continue to follow if needs arise. ROSALIO Medrano
--- NOTE | 2017-05-25 15:10 | NUR ---
Activity/Pain/Nz Patient states he still feels quite weak and intermittently nauseated. Antiemetics given. Describes feeling "hot" and "queasy" at times with weakness. Denies pain. Ambulating short distances in room only.
[2017-05-25 15:14] VITALS: BP 121/71; PULSE 86; RESP 18; O2SAT 98
--- NOTE | 2017-05-25 17:05 | PATH ---
SURGICAL PATHOLOGY Attending Physician:Ricki Hugo MD CASE STATUS: Signed Out PATIENT NAME: PAUL GUADALUPE PID: [id number] : 1990 DATE COLLECTED:05/23/2017 00:00 SPECIMEN: Appendix CLINICAL HISTORY: 1. APPENDIX FINAL DIAGNOSIS: 1.APPENDIX, LAPARASCOPIC APPENDECTOMY: ACUTE APPENDICITIS AND SEROSITIS. THE APPENDICEAL WALL DEMONSTRATES FOCAL REGIONS OF GANGRENOUS CHANGE. ICD10 K35.80 GROSS DESCRIPTION: The specimen is received in formalin, labeled with the patient's name, sublabeled as appendix, and consists of an intact appendix (length-3.5 cm, diameter-0.9 cm) with attached mesoappendix (up to 1.0 cm in depth). The resection margin is received stapled. The serosa is parry-pink smooth and shiny. The mesoappendix is partially covered in parry flaky friable exudate. The lumen contains pale sorensen solid soft material. The wall is up to 0.4 cm thick. No nodules, masses or lesions are identified. Ink code: black-proximal. Section code: (A, B) appendix, payable representative. 05/24/17 JM MICRO DESCRIPTION: See diagnosis. ICD-9 CODES: CPT CODES: 1: 32012 Electronically Signed Out Mayi Marion MD [facility] Pathology [facility] [address], [place] [address] Technical component performed at [facility], [address] [place] [address] Ave[address], [place], [address]
[2017-05-25 19:50] VITALS: BP 127/73; PULSE 85; RESP 16; O2SAT 98
[2017-05-26] MEDS: Piperacillin-Tazo 3.375 Gm Inj 3.375 GM in Dextrose 5% Minibag Plus 50 ML IV SCH ×2 (00:52→09:18)
--- NOTE | 2017-05-26 04:35 | NUR ---
ACTIVITY: Resting in bed tonight, a-febrile. Declined pain medication stating "I don't have any pain". Denies n/v, stated he is feeling better today. Smiling, comfortable, family at his side. On going care.
[2017-05-26] MEDS: D5 0.45% NaCl + KCl 20 mEq/L 1,000 ML IV SCH (04:44)
[2017-05-26 06:52] LABS: BASOPHILS % (AUTO) 0.1 % (0-3); EOSINOPHILS % (AUTO) 1.3 % (0-5); MONOCYTES % (AUTO) 10.8 % (4-12); Mean Corpuscular Hemoglobin 29.1 pg (27.0-35.0); Mean Corpuscular Volume 84.5 fL (81-100); NEUTROPHILS % (AUTO) 76.9 % (40-74); Platelet Count 305 bil/L (150-400)
[2017-05-26 07:47] VITALS: BP 126/70; PULSE 78; RESP 14; O2SAT 100
--- NOTE | 2017-05-26 12:24 | PCM.DISURG ---
Surgical Discharge Instruction Date of Service May 26, 2017 Dates of Hospitalization Date of Hospital Admission May 23, 2017 at 00:22 Providers Admitting Physician: Ricki Hugo MD Primary Care Physician: Nopreina Attending Physician: Ricki Hugo MD Discharge Diagnosis Discharge Diagnosis Appendicitis Post Operative diagnosis same Diet Discharge Diet: No restrictions Activity Discharge Activity-General: Try not to overdue, Be up and about, Balance rest and activity, Activity as energy allows, No driving while taking narcotic Dressing and Incisional Care Dressing Care: Keep dressing clean, dry & intact, Allow Steri Stripes to fall off Hygiene: May shower, DO NOT soak incision under water, NO bathtub, hot tub or whirlpool Follow Up Plan Mid-level Provider (F9): Nehemias San PA-C Follow-up appointment: Weeks (2-3) Call your provider for: Fever, Chills, Increasing abdominal pain, Nausea, Vomiting Heath Mendez PA-C May 26, 2017 12:24
[2017-05-26] MEDS ORDERED: AMOX-366 PO (12:25)
[2017-05-26] MEDS ORDERED: HYDR-4003 PO (12:25)
--- NOTE | 2017-05-26 15:04 | PCM.PNSURG ---
Subjective Date of Service: May 26, 2017 Date of Service: May 26, 2017 Visit Information: Reason for Visit Acute Appendicitis Surgery/Surgery Date Post-Op Day # 3 Date of Admission: May 23, 2017 at 00:22 Hospital Day # Subjective: Patient interviewed today. Feeling progressively better. Several BM's, tolerating normal diet, pain improved. No subjective fevers, chills. Ambulating well. Postop General: No Complaints Gastrointestinal: Good Appetite, No N/V, Passing Stool Pain Management: PO Postop Activity: Ambulating Independently Objective Objective Well appearing male in no apparent distress. Afebrile, VSS. Vital Sign- Last 8 Hours Date Time Temp Pulse Resp B/P Pulse Ox O2 Delivery O2 Flow Rate FiO2 05/26/17 07:47 36.8 78 14 126/70 100 Room Air Intake and Output- Last 8 Hour 05/26/17 Cumulative From/Thru 07:00 05/22/17 19:24 - 05/26/17 06:23 Intake Total 1150 ml 37474 ml Output Total 975 ml 5665 ml Balance 175 ml 4892 ml Intake Oral 1150 ml 8848 ml IV Total 1709 ml Output Urine Total 970 ml 5410 ml Drainage Total 5 ml 255 ml # Voids 0 # Bowel Movements 1 7 General: Alert, Oriented X3 Neck: Supple Lungs: Clear to Auscultation Heart: Regular Rate/Rhythm Abdomen: Soft, Appropriately tender, Non-distended, Normoactive bowel tones SURGICAL WOUND : Wound General Appearence: Steri Strips, Intact, Well Approximated, No Erythema, No Discharge Dressing & Drainage Status: Intact Wound Drainage Type: WU Drain #1 (scant serosanguinous) Extremities: Distal Pulses Palpable Result Diagram: 05/26/17 0620 05/22/172025 Lab & Micro Results: improved WBC down from 21.4 Assessment & Plan Impression satisfactory postop course s/p lap appy for perforated appendix, post op day 3. Improved leukocytosis and afebrile. Problems: Plan remove WU drain discharge to home follow up [facility] surg clinic in 2-3 weeks. Augmentin for 10 days as outpatient. Pain Management: [place] on discharge. VTE Prophylaxis: Heath Stroud PA-C May 26, 2017 15:04
--- NOTE | 2017-05-26 15:10 | PCM.DC.SUR ---
Discharge Summary Date of Service: May 26, 2017 Date of Hospital Admission: May 23, 2017 at 00:22 Date of Operation(s): May 23, 2017 Date of Discharge: May 26, 2017 Diagnosis at Time of Discharge Perforated appendicitis Problems: Operation Laparoscopic Appendectomy Brief History and Physical: He reports onset of abdominal pain last night with gradually increased pain and associated nausea. CT scan has been obtained consistent with appendicitis. The patient has no previous history of chronic GI complaints or previous abdominal surgery. PHYSICAL EXAMINATION: Slender man in no acute distress. BMI is 21.7. Vital signs are within normal limits other than a mildly elevated temperature of 38.2. Room air saturation is 96%. His neck is supple. HEENT: Sclerae clear. His neck is supple. Lungs are clear. Heart sounds are regular. He has significant right lower quadrant tenderness to palpation and percussion. LABORATORIES: Show a white count of 17, hematocrit is 41.6. Chemistries are within normal limits. His glucose is 138, lipase is 15. IMAGING: He has had a CT scan. I have reviewed the floor broker report, as well as reviewed the images, and I concur that this is consistent with appendicitis. He appears to have an appendicolith. Consultants: None Hospital Course: Patient was seen in the ED and evaluated for abdominal pain, Patient was found to have appendicitis and was then taken to the operating room for a laparoscopic appendectomy. Please refer to the operative notes for further details of the procedure. He was then transferred to his hospital room where he remained for the balance of his hospital stay. He gradually progressed in terms of pain control and diet toleration. His leukocytosis also slowly improved. On postoperative day 3 he was found to have good pain control, was tolerating a regular diet and he was afebrile. Abdominal drain output reduced significantly as well. He was then discharged to home in good condition. Pathology: SPECIMEN: Appendix CLINICAL HISTORY: 1. APPENDIX FINAL DIAGNOSIS: 1.APPENDIX, LAPARASCOPIC APPENDECTOMY: ACUTE APPENDICITIS AND SEROSITIS. THE APPENDICEAL WALL DEMONSTRATES FOCAL REGIONS OF GANGRENOUS CHANGE. Disposition: Home in good condition. Follow-up Plan: Discharge Diet: No restrictions Discharge Activity-General: Try not to overdue, Be up and about, Balance rest and activity, Activity as energy allows, No driving while taking narcotic Dressing Care: Keep dressing clean, dry & intact, Allow Steri Stripes to fall off Hygiene: May shower, DO NOT soak incision under water, NO bathtub, hot tub or whirlpool Mid-level Provider (F9): Nehemias San PA-C Follow-up appointment: Weeks (2-3) Call your provider for: Fever, Chills, Increasing abdominal pain, Nausea, Vomiting Amoxicillin/Clav K 875-125 mg (Augmentin 875-125 mg) 1 Each Tablet 1 TABLET PO BID Hydrocodone-Acetaminophen 5-325 mg (Hydrocodone-Acetaminophen 5-325 mg) 1 Each Tablet 1 TABLET PO Q4H PRN PRN For Pain Heath Mendez PA-C May 26, 2017 15:10
--- NOTE | 2017-05-26 16:07 | NUR ---
Discharge Patient discharged home this afternoon. Patient given verbal and written home care instructions. patient agreed to understanding and denied any further questions. Hard copy of scripts given to patient. patient will schedule follow up appointment as directed.
== END 2017-05-26 13:20 | disposition home or self-care (01) | DRG 340 ==
LOC: SED 19:13 → SAS 05-23 00:09 → OSC 05-23 00:22 → OBSVTOIN 05-23 00:22 → OSC 05-23 02:06
PROVIDERS: ADMIT Surgery; ATTEND Surgery
PROC: 0DTJ4ZZ Resection of Appendix, Percutaneous Endoscopic Approach (ICD-10-PCS; principal; 2017-05-23)
DX: K35.3 Acute appendicitis with localized peritonitis (principal)

== ENCOUNTER 2017-06-15 14:38 | Emergency (ER) | payer OTHER ==
[~2017-06-15] VITALS: Ht 180.3 cm; Wt 72.7 kg
[~2017-06-15 14:38] MED LIST: AMOX-366 PO; HYDR-4003 PO
[2017-06-15 14:46] VITALS: BP 140/80; PULSE 88; RESP 15; O2SAT 99
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
--- NOTE | 2017-06-15 15:31 | DRSVH ---
PROCEDURE: X-RAY CHEST ONE VIEW, PORTABLE ([id number]) INDICATIONS: CHEST PAIN TECHNIQUE: One view of the chest was acquired. COMPARISON: None. FINDINGS: Surgical changes and devices: None. Lungs and pleura: No pleural effusions or pneumothorax. Lungs are clear. Mediastinum: Mediastinal contours appear normal. Heart size is normal. Bones and chest wall: No suspicious bony lesions. Overlying soft tissues appear unremarkable. IMPRESSION: No acute disease Dictated by: Tony Redd M.D. on 06/15/2017 at 15:29 Approved by: Tony Redd M.D. on 06/15/2017 at 15:29
[2017-06-15 15:32] LABS: BASOPHILS % (AUTO) 0.3 % (0-3); EOSINOPHILS % (AUTO) 0.3 % (0-5); MONOCYTES % (AUTO) 6.4 % (4-12); Mean Corpuscular Volume 84.3 fL (81-100); NEUTROPHILS % (AUTO) 62.7 % (40-74); Platelet Count 325 bil/L (150-400)
[2017-06-15 16:04] LABS: TROPONIN T < 0.010 ug/L (0.0-0.011)
[2017-06-15 16:14] LABS: Magnesium 1.7 mg/dL (1.6-2.6)
[2017-06-15 16:45] VITALS: BP 126/79; PULSE 81; RESP 18; O2SAT 99
== END 2017-06-15 18:12 | disposition home or self-care (01) ==
LOC: SED 14:38
DX: R00.2 Palpitations (principal)